=== PATIENT | female | born 1940 | race Caucasian/White ===

== ENCOUNTER → 2016-08-17 | Outpatient (CLI) | payer MEDICARE, OTHER ==
--- NOTE | 2016-08-18 18:46 | Diagnostic Imaging Report ---
DIG ARACELI BILAT SCREEN W CAD Comparison: 02/27/2014 Indication: Screening mammography. Technique: Digital screening mammography was obtained with a computer-aided detection (CAD) system. Findings: There are scattered fibroglandular densities. Multiple benign appearing calcifications in the bilateral breast have increased in number. No dominant mass, suspicious microcalcifications or architectural distortion to suggest malignancy. Impression: Increasing bilateral benign calcifications. No evidence of malignancy. Recommend followup screening mammogram in 12 months. ACR BI-RADS Category 2: Benign findings. Result letter will be mailed to the patient. Note: At least 10% of breast cancer is not imaged by mammography. Dictated by: Dictated on workstation # [id number]
== END ==
LOC: RAD 13:03
PROVIDERS: ATTEND Family Medicine
DX: Z12.31 Encounter for screening mammogram for malignant neoplasm of breast (principal)